=== PATIENT | male | born 1940 | race Caucasian/White ===

== ENCOUNTER 2016-08-01 15:29 | Emergency (ER) | payer MEDICARE, OTHER ==
[~2016-08-01] VITALS: Ht 167.6 cm; Wt 90.0 kg
[2016-08-01] MEDS ORDERED: METO25 PO (15:53)
[2016-08-01] MEDS ORDERED: ATOR10TA84 PO (15:53)
[2016-08-01] MEDS ORDERED: FAMO20 PO (15:53)
[2016-08-01 16:29] LABS: APPEARANCE,URINE CLOUDY (CLEAR); GLUCOSE, URINE (UA) NEGATIVE (NEGATIVE); KETONES,URINE TRACE mg/dL (NEGATIVE); LEUKOCYTE ESTERASE ,URINE NEGATIVE (NEGATIVE); OCCULT BLOOD,URINE LARGE (NEGATIVE); PH,URINE 5.5 (5.0-8.0); PROTEIN,URINE SEE CONFIRM (NEGATIVE)
[2016-08-01 16:30] LABS: ADD UA MICROSCOPIC YES
[2016-08-01 16:38] LABS: BASOPHILS % (AUTO) 0.4 % (0.0-2.0); EOSINOPHILS % (AUTO) 0.3 % (1.0-6.0); HEMATOCRIT 32.8 % (41-53); HEMOGLOBIN 10.1 g/dL (13.5-17.5); LYMPHOCYTES # (AUTO) 0.7 K/uL (1.0-4.8); LYMPHOCYTES % (AUTO) 10.8 % (22.0-44.0); MEAN CORPUSCULAR HEMOGLOBIN 24.8 pg (26.0-34.0); MEAN CORPUSCULAR HGB CONC 30.7 G/dL (31.0-37.0); MEAN CORPUSCULAR VOLUME 81 fL (80-100); MONOCYTES # (AUTO) 1.1 K/uL (0.1-1.0); MONOCYTES % (AUTO) 16.1 % (2.0-9.0); NEUTROPHILS # (AUTO) 4.8 K/uL (1.8-7.7); NEUTROPHILS % (AUTO) 72.4 % (40.0-70.0); PLATELET COUNT (AUTO) 251 K/uL (150-450); RED BLOOD CELL COUNT(AUTO) 4.06 MIL/uL (4.50-5.90); RED CELL DISTRIBUTION WIDTH 16.9 % (11.5-14.5); WHITE BLOOD COUNT (AUTO) 6.6 K/uL (4.5-11.0)
[2016-08-01 16:48] LABS: CALCIUM, TOTAL 8.2 mg/dL (8.8-10.5); CREATININE 1.55 mg/dL (0.60-1.30); POTASSIUM 3.8 mmol/L (3.5-5.1)
[2016-08-01 16:55] LABS: ALBUMIN 2.8 g/dL (3.4-5.0); BILIRUBIN,TOTAL 0.5 mg/dL (0.1-1.0); TOTAL PROTEIN, SERUM 6.3 g/dL (6.4-8.2)
[2016-08-01 17:02] LABS: RBC,URINE >100 /HPF (0-2); SULFOSALICYLIC ACID,URINE 1+ (Negative); WBC,URINE 0-2 /HPF (0-5)
[2016-08-01] MEDS ORDERED: KETOROLAC TROMETHAMINE 60 MG/2 ML VIAL IM ONE (17:15)
[2016-08-01] MEDS ORDERED: TAMSULOSIN HCL 0.4 MG CAPSULE PO ONE (20:30)
[2016-08-01 21:44] VITALS: BP 123/71
[2016-11-04] MEDS ORDERED: DSS100 PO (13:41)
[2016-11-04] MEDS ORDERED: CALC1TAB84 PO (13:41)
[2016-11-04] MEDS ORDERED: COENZQ100 PO (13:41)
[2016-11-04] MEDS ORDERED: AMIO200T44 PO (13:41)
[2016-11-04] MEDS ORDERED: OXYC500S2 PO (13:41)
[2016-11-04] MEDS ORDERED: KDUR20 PO (13:41)
[2016-11-04] MEDS ORDERED: ACET325T47 PO (13:41)
[2016-11-04] MEDS ORDERED: MOM30 PO (13:41)
[2016-11-04] MEDS ORDERED: MIRT15 PO (13:41)
[2016-11-04] MEDS ORDERED: IPRA3AMP4 NEB (13:41)
[2016-11-04] MEDS ORDERED: BUDE0.5A5 NEB (13:41)
[2016-11-04] MEDS ORDERED: ONDA4 PO (13:41)
[2016-11-04] MEDS ORDERED: FURO20 PO (13:41)
[2016-11-04] MEDS ORDERED: SENN-30 PO (13:41)
[2016-12-05] MEDS ORDERED: DSS100 PO (11:20)
[2016-12-05] MEDS ORDERED: FLEET GLYCERIN RC (11:20)
[2016-12-05] MEDS ORDERED: ROBITUSSIN PO (11:20)
[2016-12-05] MEDS ORDERED: ALBUTEROL (11:20)
[2016-12-05] MEDS ORDERED: ZOLP5 PO (11:20)
[2016-12-05] MEDS ORDERED: TRAM50TA4 PO (11:20)
== END 2016-08-01 22:23 | disposition home or self-care (01) ==
LOC: EMS 15:35
DX: N20.9 Urinary calculus, unspecified (principal); N13.30 Unspecified hydronephrosis; N13.4 Hydroureter; D64.9 Anemia, unspecified; Z86.73 Personal history of transient ischemic attack (TIA), and cerebral infarction without residual deficits; K21.9 Gastro-esophageal reflux disease without esophagitis; E78.00 Pure hypercholesterolemia, unspecified; I10 Essential (primary) hypertension
CPT/HCPCS: 36415; 74176; 80053; 81001; 81002; 85025; 96372; 99285; J1885

== ENCOUNTER 2016-08-05 16:21 | Emergency (ER) | payer MEDICARE, OTHER ==
[~2016-08-05] VITALS: Ht 167.6 cm; Wt 77.0 kg
[~2016-08-05 16:21] MED LIST: ATOR10TA84 PO; FAMO20 PO; METO25 PO
[2016-08-06 00:24] VITALS: BP 157/89
[2016-08-06] MEDS ORDERED: TRAM50TA4 PO (12:31)
[2016-08-06] MEDS ORDERED: TAMS0.4C32 PO (12:31)
[2016-08-06] MEDS ORDERED: ATOR40TA28 PO (12:31)
[2016-08-06] MEDS ORDERED: IBUP-2070 PO (12:31)
[2016-08-06] MEDS ORDERED: LEVE500T53 PO (12:31)
[2016-08-06] MEDS ORDERED: METO50 PO (12:31)
[2016-11-04] MEDS ORDERED: IPRA3AMP4 NEB (13:41)
[2016-11-04] MEDS ORDERED: AMIO200T44 PO (13:41)
[2016-11-04] MEDS ORDERED: SENN-30 PO (13:41)
[2016-11-04] MEDS ORDERED: ACET325T47 PO (13:41)
[2016-11-04] MEDS ORDERED: DSS100 PO (13:41)
[2016-11-04] MEDS ORDERED: BUDE0.5A5 NEB (13:41)
[2016-11-04] MEDS ORDERED: MIRT15 PO (13:41)
[2016-11-04] MEDS ORDERED: OXYC500S2 PO (13:41)
[2016-11-04] MEDS ORDERED: ONDA4 PO (13:41)
[2016-11-04] MEDS ORDERED: MOM30 PO (13:41)
[2016-11-04] MEDS ORDERED: FURO20 PO (13:41)
[2016-11-04] MEDS ORDERED: KDUR20 PO (13:41)
[2016-11-04] MEDS ORDERED: CALC1TAB84 PO (13:41)
[2016-11-04] MEDS ORDERED: COENZQ100 PO (13:41)
[2016-12-05] MEDS ORDERED: FLEET GLYCERIN RC (11:20)
[2016-12-05] MEDS ORDERED: ZOLP5 PO (11:20)
[2016-12-05] MEDS ORDERED: TRAM50TA4 PO (11:20)
[2016-12-05] MEDS ORDERED: ALBUTEROL (11:20)
[2016-12-05] MEDS ORDERED: ROBITUSSIN PO (11:20)
[2016-12-05] MEDS ORDERED: DSS100 PO (11:20)
== END 2016-08-06 00:26 | disposition home or self-care (01) ==
LOC: EMS 16:23
DX: M79.605 Pain in left leg (principal); M79.604 Pain in right leg; I10 Essential (primary) hypertension; K21.9 Gastro-esophageal reflux disease without esophagitis; E78.00 Pure hypercholesterolemia, unspecified; Z86.73 Personal history of transient ischemic attack (TIA), and cerebral infarction without residual deficits; Z85.841 Personal history of malignant neoplasm of brain
CPT/HCPCS: 99283

== ENCOUNTER 2016-08-12 14:10 | Inpatient (IN) | payer MEDICARE, OTHER ==
[~2016-08-12 14:10] MED LIST changes: -ATOR10TA84 PO; +ATOR40TA28 PO; +IBUP-2070 PO; +LEVE500T53 PO; -METO25 PO; +METO50 PO; +TAMS0.4C32 PO; +TRAM50TA4 PO
[2016-08-12 15:35] VITALS: BP 131/80
[2016-08-12] MEDS ORDERED: AMIODARONE HCL 150 MG in DEXTROSE 5%-WATER 97 ML IV ONE (16:00)
[2016-08-12] MEDS ORDERED: AMIODARONE HCL 360 MG in DEXTROSE 5%-WATER 242.8 ML IV ONE (16:00)
[2016-08-12] MEDS ORDERED: 0.9% SODIUM CHLORIDE 10 ML SYRINGE IVP PRN ×2 (16:30→17:45)
[2016-08-12] MEDS: ACETYLCYSTEINE 10% 100 MG/ML 4 ML NEB SOLUTION NEB SCH ×2 (16:53→23:11)
[2016-08-12] MEDS: DIGOXIN 250 MCG/ML 2 ML AMP IVP SCH ×2 (16:55→23:53)
[2016-08-12] MEDS ORDERED: TraMADol HCL 50 MG TABLET PO PRN (17:45)
[2016-08-12] MEDS ORDERED: ACETAMINOPHEN 325 MG TABLET PO PRN (17:45)
[2016-08-12] MEDS ORDERED: DOCUSATE SODIUM 283 MG/5 ML MINI-ENEMA PR PRN (17:45)
[2016-08-12] MEDS ORDERED: HYDROCODONE/ACETAMINOPHEN 5-325 MG TABLET PO PRN (17:45)
[2016-08-12] MEDS: GuaiFENesin [SUGAR-FREE] 200 MG/10 ML SOLUTION UDCUP PO SCH ×2 (18:20→23:53)
[2016-08-12] MEDS ORDERED: PNEUMOCOCCAL VACCINE POLYVALENT 0.5 ML VIAL [PPSV23] IM ONE (18:30)
[2016-08-12] MEDS ORDERED: INFLUENZA VIRUS VACCINE QVS 2016-17 (3YR+)/PF 60 MCG/0.5 ML SYRINGE IM ONE (18:30)
[2016-08-12] MEDS: ALBUTEROL SULFATE 2.5 MG/0.5 ML NEB SOLUTION NEB SCH ×2 (19:30→23:00)
[2016-08-12] MEDS: IPRATROPIUM BROMIDE 0.5 MG/2.5 ML NEB SOLUTION NEB SCH ×2 (19:30→23:00)
[2016-08-12 20:11] VITALS: BP 119/65
[2016-08-12] MEDS: LevETIRAcetam 500 MG TABLET PO SCH (20:44)
[2016-08-12] MEDS: ATORVASTATIN CALCIUM 40 MG TABLET PO SCH (20:44)
[2016-08-12] MEDS: OXYGEN THERAPY IH SCH (20:45)
[2016-08-12] MEDS: TAMSULOSIN HCL 0.4 MG CAPSULE PO SCH (20:45)
[2016-08-12] MEDS: DOCUSATE SODIUM 250 MG CAPSULE PO SCH (20:45)
[2016-08-12] MEDS: MIRTAZAPINE 15 MG TABLET PO SCH (20:45)
[2016-08-12] MEDS: SENNA 187 MG TABLET PO SCH (20:45)
[2016-08-12] MEDS: METOPROLOL TARTRATE 50 MG TABLET PO SCH (20:45)
[2016-08-12] MEDS ORDERED: AMIODARONE HCL 540 MG in DEXTROSE 5%-WATER 239.2 ML IV ONE (22:00)
[2016-08-12] MEDS ORDERED: ALBUTEROL SULFATE 2.5 MG/0.5 ML NEB SOLUTION NEB PRN (23:00)
[2016-08-12] MEDS ORDERED: ZOLPIDEM TARTRATE 5 MG TABLET PO PRN (23:00)
[2016-08-12] MEDS ORDERED: IPRATROPIUM BROMIDE 0.5 MG/2.5 ML NEB SOLUTION NEB PRN (23:00)
[2016-08-12] MEDS ORDERED: ONDANSETRON HCL 4 MG/2 ML VIAL IVP PRN (23:00)
[2016-08-12] MEDS ORDERED: BISACODYL 10 MG RECTAL RECTAL SUPPOSITORY PR PRN (23:00)
[2016-08-12] MEDS ORDERED: MAGNESIUM HYDROXIDE SUSPENSION 30 ML UDCUP PO PRN (23:00)
[2016-08-12 23:39] VITALS: BP 150/73
[2016-08-13] MEDS: IPRATROPIUM BROMIDE 0.5 MG/2.5 ML NEB SOLUTION NEB SCH ×6 (02:56→23:14)
[2016-08-13] MEDS: ALBUTEROL SULFATE 2.5 MG/0.5 ML NEB SOLUTION NEB SCH ×6 (02:56→23:14)
[2016-08-13 05:09] VITALS: BP 148/82
[2016-08-13 06:14] LABS: EOSINOPHILS % (AUTO) 0 % (1.0-6.0); HEMOGLOBIN 8.8 g/dL (13.5-17.5); LYMPHOCYTES # (AUTO) 0.8 K/uL (1.0-4.8); LYMPHOCYTES % (AUTO) 5.2 % (22.0-44.0); MEAN CORPUSCULAR HEMOGLOBIN 24.6 pg (26.0-34.0); MEAN CORPUSCULAR HGB CONC 30.3 G/dL (31.0-37.0); MEAN CORPUSCULAR VOLUME 81 fL (80-100); MONOCYTES # (AUTO) 1.9 K/uL (0.1-1.0); MONOCYTES % (AUTO) 12.8 % (2.0-9.0); NEUTROPHILS # (AUTO) 12.2 K/uL (1.8-7.7); PLATELET COUNT (AUTO) 384 K/uL (150-450); RED BLOOD CELL COUNT(AUTO) 3.58 MIL/uL (4.50-5.90); RED CELL DISTRIBUTION WIDTH 16.8 % (11.5-14.5); WHITE BLOOD COUNT (AUTO) 14.8 K/uL (4.5-11.0)
[2016-08-13] MEDS: GuaiFENesin [SUGAR-FREE] 200 MG/10 ML SOLUTION UDCUP PO SCH ×3 (06:40→18:00)
[2016-08-13] MEDS: DIGOXIN 250 MCG/ML 2 ML AMP IVP SCH ×2 (06:42→13:46)
[2016-08-13 07:14] VITALS: BP 178/88
[2016-08-13 07:24] LABS: ANION GAP 6 mmol/L (8-16); CALCIUM, TOTAL 8.4 mg/dL (8.8-10.5); CARBON DIOXIDE 34 mmol/L (22-29); CHLORIDE 102 mmol/L (98-107); CREATINE KINASE, TOTAL 24 U/L (39-308); CREATININE 1.04 mg/dL (0.60-1.30); GLOMERULAR FILTR. RATE CALC > 60 mL/min (>60); POTASSIUM 3.6 mmol/L (3.5-5.1); SODIUM SERUM 142 mmol/L (136-145); THYROID STIMULATING HORMONE 0.42 uIU/mL (0.36-3.74); UREA NITROGEN, BLOOD 18 mg/dL (7-18)
[2016-08-13] MEDS: ACETYLCYSTEINE 10% 100 MG/ML 4 ML NEB SOLUTION NEB SCH ×3 (07:25→23:16)
[2016-08-13] MEDS: BUDESONIDE 0.5 MG/2 ML NEB SOLUTION NEB SCH ×2 (07:25→19:21)
[2016-08-13 08:35] LABS: B-TYPE NATRIURETIC PEPTIDE 626 pg/mL (0-100)
[2016-08-13] MEDS: ENOXAPARIN SODIUM 40 MG/0.4 ML PF SYRINGE SQ SCH (09:00)
[2016-08-13] MEDS: OXYGEN THERAPY IH SCH ×2 (10:11→21:32)
[2016-08-13] MEDS: TAMSULOSIN HCL 0.4 MG CAPSULE PO SCH ×2 (10:12→21:33)
[2016-08-13] MEDS: LevETIRAcetam 500 MG TABLET PO SCH ×2 (10:12→21:33)
[2016-08-13] MEDS: DOCUSATE SODIUM 250 MG CAPSULE PO SCH ×2 (10:12→21:33)
[2016-08-13] MEDS: PANTOPRAZOLE SODIUM 40 MG DR TABLET PO SCH (10:12)
[2016-08-13] MEDS: METOPROLOL TARTRATE 50 MG TABLET PO SCH ×2 (10:12→21:34)
[2016-08-13] MEDS: UBIDECARENONE 100 MG CAPSULE PO SCH (10:14)
[2016-08-13] MEDS ORDERED: MAGNESIUM SULFATE 4 GM/WATER 100 ML IV PRN (10:15)
[2016-08-13] MEDS ORDERED: MAGNESIUM SULFATE 2 GM in DEXTROSE 5%-WATER 50 ML IV PRN (10:15)
[2016-08-13] MEDS: FUROSEMIDE 20 MG/2 ML VIAL IVP SCH ×2 (10:30→21:33)
[2016-08-13 11:00] LABS: RBC MORPHOLOGY COMMENT NORMAL RBC MORPH
[2016-08-13 11:15] VITALS: BP 166/71
[2016-08-13 11:54] LABS: ALBUMIN 2.3 g/dL (3.4-5.0)
[2016-08-13] MEDS: EPOETIN ALFA 10,000 UNITS/ML VIAL SQ SCH (13:44)
[2016-08-13 15:16] VITALS: BP 133/91
[2016-08-13] MEDS ORDERED: AMIODARONE HCL 750 MG in DEXTROSE 5%-WATER 485 ML IV SCH (16:00)
[2016-08-13] MEDS: MAGNESIUM OXIDE 400 MG TABLET PO PRN (16:43)
[2016-08-13] MEDS ORDERED: SODIUM CHLORIDE 0.9% 100 ML ONE (17:39)
[2016-08-13] MEDS: CefTRIAXone 1 GM/DEXTROSE 50 ML IV SCH (17:46)
[2016-08-13] MEDS: AZITHROMYCIN 500 MG/NS 250 ML IV SCH (19:04)
[2016-08-13] MEDS ORDERED: MIDAZOLAM HCL 2 MG/2 ML VIAL IVP ONE (20:00)
[2016-08-13 20:30] VITALS: BP 137/66
[2016-08-13 20:38] LABS: BASOPHILS # (AUTO) 0.01 K/uL (0.00-0.20); EOSINOPHILS # (AUTO) 0.01 K/uL (0.00-0.70); EOSINOPHILS % (AUTO) 0.04 % (1.0-6.0); HEMATOCRIT 30.9 % (41-53); HEMOGLOBIN 9.5 g/dL (13.5-17.5); LYMPHOCYTES % (AUTO) 5.9 % (22.0-44.0); MEAN CORPUSCULAR HEMOGLOBIN 24.8 pg (26.0-34.0); MEAN CORPUSCULAR HGB CONC 30.8 G/dL (31.0-37.0); MEAN CORPUSCULAR VOLUME 81 fL (80-100); MONOCYTES # (AUTO) 0.3 K/uL (0.1-1.0); MONOCYTES % (AUTO) 1.9 % (2.0-9.0); NEUTROPHILS # (AUTO) 15.2 K/uL (1.8-7.7); PLATELET COUNT (AUTO) 450 K/uL (150-450); RED BLOOD CELL COUNT(AUTO) 3.83 MIL/uL (4.50-5.90); RED CELL DISTRIBUTION WIDTH 17.2 % (11.5-14.5); WHITE BLOOD COUNT (AUTO) 16.5 K/uL (4.5-11.0)
[2016-08-13 20:42] LABS: CALCIUM, TOTAL 8.8 mg/dL (8.8-10.5); CREATININE 1.28 mg/dL (0.60-1.30); POTASSIUM 3.7 mmol/L (3.5-5.1)
[2016-08-13 20:48] LABS: ALBUMIN 2.2 g/dL (3.4-5.0); BILIRUBIN,TOTAL 0.7 mg/dL (0.1-1.0); TOTAL PROTEIN, SERUM 6.9 g/dL (6.4-8.2)
[2016-08-13] MEDS ORDERED: METOPROLOL TARTRATE 50 MG TABLET PO SCH (21:00)
[2016-08-13] MEDS ORDERED: LevETIRAcetam 500 MG TABLET PO SCH (21:00)
[2016-08-13] MEDS ORDERED: ATORVASTATIN CALCIUM 40 MG TABLET PO SCH (21:00)
[2016-08-13 21:02] LABS: NEUTROPHILS % (AUTO) 92.2 % (40.0-70.0); RBC MORPHOLOGY COMMENT ABNORMAL RBC MORPH
[2016-08-13] MEDS: SENNA 187 MG TABLET PO SCH (21:33)
[2016-08-13] MEDS: MIRTAZAPINE 15 MG TABLET PO SCH (21:35)
[2016-08-13] MEDS: ATORVASTATIN CALCIUM 40 MG TABLET PO SCH (23:17)
[2016-08-13 23:42] LABS: GLUCOSE COMMENT 1 Doctor Notified; GLUCOSE,POINT OF CARE 224 MG/DL (70-110)
[2016-08-14] VITALS: BP 129/51
[2016-08-14] MEDS: IPRATROPIUM BROMIDE 0.5 MG/2.5 ML NEB SOLUTION NEB SCH ×7 (02:52→23:00)
[2016-08-14] MEDS: ALBUTEROL SULFATE 2.5 MG/0.5 ML NEB SOLUTION NEB SCH ×7 (02:53→23:00)
[2016-08-14 04:00] VITALS: BP 94/47
[2016-08-14 05:58] LABS: EOSINOPHILS % (AUTO) 0 % (1.0-6.0); HEMATOCRIT 29.5 % (41-53); LYMPHOCYTES # (AUTO) 0.6 K/uL (1.0-4.8); LYMPHOCYTES % (AUTO) 3.2 % (22.0-44.0); MEAN CORPUSCULAR HEMOGLOBIN 25.8 pg (26.0-34.0); MEAN CORPUSCULAR HGB CONC 30.4 G/dL (31.0-37.0); MEAN CORPUSCULAR VOLUME 85 fL (80-100); MONOCYTES # (AUTO) 1.3 K/uL (0.1-1.0); MONOCYTES % (AUTO) 7.7 % (2.0-9.0); NEUTROPHILS # (AUTO) 15.7 K/uL (1.8-7.7); PLATELET COUNT (AUTO) 401 K/uL (150-450); RED BLOOD CELL COUNT(AUTO) 3.47 MIL/uL (4.50-5.90); RED CELL DISTRIBUTION WIDTH 17.2 % (11.5-14.5); WHITE BLOOD COUNT (AUTO) 17.6 K/uL (4.5-11.0)
[2016-08-14] MEDS: GuaiFENesin [SUGAR-FREE] 200 MG/10 ML SOLUTION UDCUP PO SCH ×5 (06:00→18:00)
[2016-08-14 06:10] LABS: CALCIUM, TOTAL 8.5 mg/dL (8.8-10.5); CREATININE 1.25 mg/dL (0.60-1.30); MAGNESIUM 1.6 mg/dL (1.80-2.40); POTASSIUM 3.9 mmol/L (3.5-5.1)
[2016-08-14 06:42] LABS: NEUTROPHILS % (AUTO) 89.1 % (40.0-70.0); RBC MORPHOLOGY COMMENT ABNORMAL RBC MORPH
[2016-08-14] MEDS: OXYGEN THERAPY IH SCH ×2 (07:09→20:12)
[2016-08-14] MEDS: ACETYLCYSTEINE 10% 100 MG/ML 4 ML NEB SOLUTION NEB SCH ×2 (07:09→15:28)
[2016-08-14] MEDS: BUDESONIDE 0.5 MG/2 ML NEB SOLUTION NEB SCH ×3 (07:11→20:11)
[2016-08-14 08:00] VITALS: BP 126/57
[2016-08-14] MEDS ORDERED: TAMSULOSIN HCL 0.4 MG CAPSULE PO SCH (09:00)
[2016-08-14] MEDS ORDERED: FAMOTIDINE 20 MG TABLET PO SCH (09:00)
[2016-08-14] MEDS: FUROSEMIDE 20 MG/2 ML VIAL IVP SCH ×2 (09:50→21:00)
[2016-08-14] MEDS: TAMSULOSIN HCL 0.4 MG CAPSULE PO SCH ×2 (09:51→20:44)
[2016-08-14] MEDS: UBIDECARENONE 100 MG CAPSULE PO SCH (09:51)
[2016-08-14] MEDS: DOCUSATE SODIUM 250 MG CAPSULE PO SCH ×2 (09:51→21:00)
[2016-08-14] MEDS: METOPROLOL TARTRATE 50 MG TABLET PO SCH ×2 (09:52→21:00)
[2016-08-14] MEDS: LevETIRAcetam 500 MG TABLET PO SCH ×2 (09:52→20:44)
[2016-08-14] MEDS: PANTOPRAZOLE SODIUM 40 MG DR TABLET PO SCH (09:52)
[2016-08-14] MEDS: ENOXAPARIN SODIUM 40 MG/0.4 ML PF SYRINGE SQ SCH (09:53)
[2016-08-14] MEDS: CefTRIAXone 1 GM/DEXTROSE 50 ML IV SCH (10:44)
[2016-08-14] MEDS: MAGNESIUM OXIDE 400 MG TABLET PO PRN ×2 (10:44→15:14)
[2016-08-14] MEDS ORDERED: SODIUM CHLORIDE 0.9% 250 ML IV ONE (11:10)
[2016-08-14 12:00] VITALS: BP 105/54
[2016-08-14] MEDS: AZITHROMYCIN 500 MG/NS 250 ML IV SCH (12:06)
[2016-08-14 13:24] LABS: CARCINOEMBRYONIC AG 2.2 ng/mL (0.0-4.7)
[2016-08-14] MEDS: AMIODARONE HCL 200 MG TABLET PO SCH ×2 (15:14→20:44)
[2016-08-14 16:40] VITALS: BP 114/58
[2016-08-14 19:58] VITALS: BP 101/42
[2016-08-14] MEDS: MIRTAZAPINE 15 MG TABLET PO SCH (21:00)
[2016-08-14] MEDS: ATORVASTATIN CALCIUM 40 MG TABLET PO SCH (21:00)
[2016-08-14] MEDS: SENNA 187 MG TABLET PO SCH (21:00)
[2016-08-15 00:05] VITALS: BP 103/53
[2016-08-15] MEDS: IPRATROPIUM BROMIDE 0.5 MG/2.5 ML NEB SOLUTION NEB SCH ×4 (03:00→15:00)
[2016-08-15] MEDS: ALBUTEROL SULFATE 2.5 MG/0.5 ML NEB SOLUTION NEB SCH ×4 (03:00→15:00)
[2016-08-15 05:14] VITALS: BP 108/52
[2016-08-15] MEDS: GuaiFENesin [SUGAR-FREE] 200 MG/10 ML SOLUTION UDCUP PO SCH ×3 (06:00→11:41)
[2016-08-15] MEDS: BUDESONIDE 0.5 MG/2 ML NEB SOLUTION NEB SCH (07:20)
[2016-08-15] MEDS: ACETYLCYSTEINE 10% 100 MG/ML 4 ML NEB SOLUTION NEB SCH ×3 (07:20→16:00)
[2016-08-15] MEDS: EPOETIN ALFA 10,000 UNITS/ML VIAL SQ SCH (09:00)
[2016-08-15] MEDS: UBIDECARENONE 100 MG CAPSULE PO SCH (09:00)
[2016-08-15] MEDS: FUROSEMIDE 20 MG/2 ML VIAL IVP SCH (09:00)
[2016-08-15] MEDS: DOCUSATE SODIUM 250 MG CAPSULE PO SCH (09:00)
[2016-08-15] MEDS: LevETIRAcetam 500 MG TABLET PO SCH (09:00)
[2016-08-15] MEDS: TAMSULOSIN HCL 0.4 MG CAPSULE PO SCH (09:00)
[2016-08-15] MEDS: ENOXAPARIN SODIUM 40 MG/0.4 ML PF SYRINGE SQ SCH (09:00)
[2016-08-15] MEDS ORDERED: INFLUENZA VIRUS VACCINE QVS 2016-17 (3YR+)/PF 60 MCG/0.5 ML SYRINGE IM ONE (11:30)
[2016-08-15] MEDS: PANTOPRAZOLE SODIUM 40 MG DR TABLET PO SCH (11:39)
[2016-08-15] MEDS: AMIODARONE HCL 200 MG TABLET PO SCH (11:40)
[2016-08-15] MEDS: METOPROLOL TARTRATE 50 MG TABLET PO SCH (11:40)
[2016-08-15] MEDS: CefTRIAXone 1 GM/DEXTROSE 50 ML IV SCH (11:47)
[2016-08-15] MEDS ORDERED: SODIUM CHLORIDE 0.9% 250 ML IV ONE (11:49)
[2016-08-15 12:00] VITALS: BP 122/58
[2016-08-15] MEDS: AZITHROMYCIN 500 MG/NS 250 ML IV SCH (13:00)
[2016-08-15 15:35] VITALS: BP 116/52
[2016-08-15] MEDS ORDERED: [UNRECOGNIZED DRUG - CODE] NEB (16:12)
[2016-08-15] MEDS ORDERED: AUD NEB (16:13)
[2016-11-04] MEDS ORDERED: CALC1TAB84 PO (13:41)
[2016-11-04] MEDS ORDERED: OXYC500S2 PO (13:41)
[2016-11-04] MEDS ORDERED: AMIO200T44 PO (13:41)
[2016-11-04] MEDS ORDERED: FURO20 PO (13:41)
[2016-11-04] MEDS ORDERED: IPRA3AMP4 NEB (13:41)
[2016-11-04] MEDS ORDERED: ONDA4 PO (13:41)
[2016-11-04] MEDS ORDERED: MIRT15 PO (13:41)
[2016-11-04] MEDS ORDERED: MOM30 PO (13:41)
[2016-11-04] MEDS ORDERED: BUDE0.5A5 NEB (13:41)
[2016-11-04] MEDS ORDERED: KDUR20 PO (13:41)
[2016-11-04] MEDS ORDERED: SENN-30 PO (13:41)
[2016-11-04] MEDS ORDERED: DSS100 PO (13:41)
[2016-11-04] MEDS ORDERED: ACET325T47 PO (13:41)
[2016-11-04] MEDS ORDERED: COENZQ100 PO (13:41)
[2016-12-05] MEDS ORDERED: ROBITUSSIN PO (11:20)
[2016-12-05] MEDS ORDERED: ZOLP5 PO (11:20)
[2016-12-05] MEDS ORDERED: FLEET GLYCERIN RC (11:20)
[2016-12-05] MEDS ORDERED: DSS100 PO (11:20)
[2016-12-05] MEDS ORDERED: ALBUTEROL (11:20)
[2016-12-05] MEDS ORDERED: TRAM50TA4 PO (11:20)
== END 2016-08-15 17:30 | DRG 871 ==
LOC: 5S 14:10 → ICU 08-13 20:00 → 5S 08-14 16:03
PROVIDERS: ADMIT Internal Medicine Geriatric Medicine; ATTEND Internal Medicine Geriatric Medicine
DX: A41.9 Sepsis, unspecified organism (principal); J18.9 Pneumonia, unspecified organism; G93.40 Encephalopathy, unspecified; J96.90 Respiratory failure, unspecified, unspecified whether with hypoxia or hypercapnia; I46.9 Cardiac arrest, cause unspecified; N13.30 Unspecified hydronephrosis; I69.351 Hemiplegia and hemiparesis following cerebral infarction affecting right dominant side; J44.0 Chronic obstructive pulmonary disease with (acute) lower respiratory infection; I48.91 Unspecified atrial fibrillation; Z51.5 Encounter for palliative care; Z66 Do not resuscitate; J44.9 Chronic obstructive pulmonary disease, unspecified; N40.0 Benign prostatic hyperplasia without lower urinary tract symptoms; E87.6 Hypokalemia; R53.81 Other malaise; R62.7 Adult failure to thrive; R91.1 Solitary pulmonary nodule; I69.320 Aphasia following cerebral infarction; I73.9 Peripheral vascular disease, unspecified; M48.06 Spinal stenosis, lumbar region; N40.1 Benign prostatic hyperplasia with lower urinary tract symptoms; D64.9 Anemia, unspecified; E78.5 Hyperlipidemia, unspecified; I10 Essential (primary) hypertension; E83.42 Hypomagnesemia; F17.210 Nicotine dependence, cigarettes, uncomplicated; Z91.19 Patient's noncompliance with other medical treatment and regimen; Z28.21 Immunization not carried out because of patient refusal; Z98.890 Other specified postprocedural states; Z53.29 Procedure and treatment not carried out because of patient's decision for other reasons; Z86.011 Personal history of benign neoplasm of the brain
CPT/HCPCS: 82105; 82306; 82378; 82607; 82746; 82962; 83036; 83735; 84439; 84443; 86301; 87081; 92950; 93306; 94640; 94660; 94799; J0282; J0456; J0696; J0885; J1160; J1650; J1940; J2250; J7050; J7060

== ENCOUNTER → 2016-11-04 | Outpatient (CLI) | payer MEDICARE, OTHER ==
[~2016-11-04] MED LIST changes: +ACET325T47 PO; +AMIO200T44 PO; +AUD NEB; +BUDE0.5A5 NEB; +CALC1TAB84 PO; +COENZQ100 PO; +DSS100 PO; +FURO20 PO; +IPRA3AMP4 NEB; +KDUR20 PO; +MIRT15 PO; +MOM30 PO; +ONDA4 PO; +OXYC500S2 PO; +SENN-30 PO; +[UNRECOGNIZED DRUG - CODE] NEB
[2016-11-04 13:29] VITALS: BP 104/48
== END | disposition home or self-care (01) ==
LOC: SRCNTR 13:27
PROVIDERS: ATTEND Internal Medicine Critical Care Medicine
DX: I10 Essential (primary) hypertension (principal); F17.210 Nicotine dependence, cigarettes, uncomplicated; R91.1 Solitary pulmonary nodule; I63.8 Other cerebral infarction; G81.93 Hemiplegia, unspecified affecting right nondominant side; Z98.890 Other specified postprocedural states
CPT/HCPCS: G0463

== ENCOUNTER → 2016-11-13 | Outpatient (CLI) | payer MEDICARE, OTHER ==
[~2016-11-13] MED LIST changes: -AUD NEB; -TRAM50TA4 PO; -[UNRECOGNIZED DRUG - CODE] NEB
== END | disposition home or self-care (01) ==
LOC: RADMN 13:00
PROVIDERS: ATTEND Internal Medicine Critical Care Medicine
DX: J43.8 Other emphysema (principal); J90 Pleural effusion, not elsewhere classified; I25.10 Atherosclerotic heart disease of native coronary artery without angina pectoris; I70.0 Atherosclerosis of aorta; K80.20 Calculus of gallbladder without cholecystitis without obstruction; J98.11 Atelectasis; J98.09 Other diseases of bronchus, not elsewhere classified
CPT/HCPCS: 71250

== ENCOUNTER → 2016-12-05 | Outpatient (CLI) | payer MEDICARE, OTHER ==
[~2016-12-05] MED LIST changes: +ALBUTEROL; +FLEET GLYCERIN RC; +ROBITUSSIN PO; +TRAM50TA4 PO; +ZOLP5 PO
[2016-12-05 11:03] VITALS: BP 131/61
== END | disposition home or self-care (01) ==
LOC: SRCNTR 10:51
PROVIDERS: ATTEND Internal Medicine Critical Care Medicine
DX: R91.8 Other nonspecific abnormal finding of lung field (principal); J90 Pleural effusion, not elsewhere classified; J43.9 Emphysema, unspecified; I25.10 Atherosclerotic heart disease of native coronary artery without angina pectoris; I70.0 Atherosclerosis of aorta; K80.20 Calculus of gallbladder without cholecystitis without obstruction; I63.9 Cerebral infarction, unspecified; G81.91 Hemiplegia, unspecified affecting right dominant side; I10 Essential (primary) hypertension; F17.200 Nicotine dependence, unspecified, uncomplicated; Z98.890 Other specified postprocedural states
CPT/HCPCS: G0463

== ENCOUNTER 2017-01-17 19:47 | Inpatient (IN) | payer MEDICARE, OTHER ==
[~2017-01-17] VITALS: Ht 177.8 cm; Wt 75.8 kg
[2017-01-17 20:35] LABS: BASOPHILS % (AUTO) 0.5 % (0.0-2.0); EOSINOPHILS % (AUTO) 2.3 % (1.0-6.0); HEMATOCRIT 31.3 % (41-53); LYMPHOCYTES # (AUTO) 2.5 K/uL (1.0-4.8); LYMPHOCYTES % (AUTO) 36.4 % (22.0-44.0); MEAN CORPUSCULAR HEMOGLOBIN 26.5 pg (26.0-34.0); MEAN CORPUSCULAR HGB CONC 32.1 G/dL (31.0-37.0); MEAN CORPUSCULAR VOLUME 82 fL (80-100); MONOCYTES # (AUTO) 0.9 K/uL (0.1-1.0); MONOCYTES % (AUTO) 12.9 % (2.0-9.0); NEUTROPHILS # (AUTO) 3.3 K/uL (1.8-7.7); NEUTROPHILS % (AUTO) 47.9 % (40.0-70.0); PLATELET COUNT (AUTO) 250 K/uL (150-450); RED BLOOD CELL COUNT(AUTO) 3.79 MIL/uL (4.50-5.90); RED CELL DISTRIBUTION WIDTH 16.5 % (11.5-14.5); WHITE BLOOD COUNT (AUTO) 6.9 K/uL (4.5-11.0)
[2017-01-17 20:39] LABS: ANION GAP 5 mmol/L (8-16); CALCIUM, TOTAL 8.8 mg/dL (8.8-10.5); CARBON DIOXIDE 33 mmol/L (22-29); CHLORIDE 102 mmol/L (98-107); CREATININE 1.62 mg/dL (0.60-1.30); GLOMERULAR FILTR. RATE CALC 42 mL/min (>60); POTASSIUM 3.9 mmol/L (3.5-5.1); SODIUM SERUM 140 mmol/L (136-145); UREA NITROGEN, BLOOD 14 mg/dL (7-18)
[2017-01-17 20:54] LABS: INR 1.1 (0.9-1.1); PROTHROMBIN TIME 11.2 SEC (9.4-11.6)
[2017-01-17 21:03] LABS: ALANINE AMINOTRANSFERASE 12 U/L (12-78); ALBUMIN 3.3 g/dL (3.4-5.0); ASPARTATE AMINOTRANSFERASE 17 U/L (15-37); BILIRUBIN,TOTAL 0.5 mg/dL (0.1-1.0); CREATINE KINASE, TOTAL 85 U/L (39-308); TOTAL PROTEIN, SERUM 6.9 g/dL (6.4-8.2)
[2017-01-17 21:06] LABS: B-TYPE NATRIURETIC PEPTIDE 115 pg/mL (0-100); CREATINE KINASE MB < 0.5 ng/mL (0-5)
[2017-01-17] MEDS: SODIUM CHLORIDE 0.9% 250 ML IV ONE ×2 (22:22→23:13)
[2017-01-17 22:27] LABS: APPEARANCE,URINE CLEAR (CLEAR); GLUCOSE, URINE (UA) NEGATIVE (NEGATIVE); KETONES,URINE NEGATIVE (NEGATIVE); LEUKOCYTE ESTERASE ,URINE NEGATIVE (NEGATIVE); OCCULT BLOOD,URINE NEGATIVE (NEGATIVE); PROTEIN,URINE NEGATIVE (NEGATIVE)
[2017-01-17 22:29] LABS: ADD UA MICROSCOPIC NO
[2017-01-17] MEDS ORDERED: TraMADol HCL 50 MG TABLET PO PRN (23:30)
[2017-01-17] MEDS: ZOLPIDEM TARTRATE 5 MG TABLET PO SCH (23:30)
[2017-01-17] MEDS ORDERED: GLYCERIN PR PRN (23:30)
[2017-01-17] MEDS ORDERED: DOCUSATE SODIUM 250 MG CAPSULE PO SCH (23:30)
[2017-01-17] MEDS ORDERED: ACETAMINOPHEN 325 MG TABLET PO PRN (23:30)
[2017-01-17] MEDS ORDERED: GuaiFENesin [SUGAR-FREE] 200 MG/10 ML SOLUTION UDCUP PO PRN (23:30)
[2017-01-17] MEDS ORDERED: ONDANSETRON HCL 4 MG/2 ML VIAL IVP PRN (23:30)
[2017-01-17] MEDS ORDERED: HYDROCODONE/ACETAMINOPHEN 5-325 MG TABLET PO PRN ×2 (23:30)
[2017-01-17] MEDS ORDERED: OxyCODONE HCL/ACETAMINOPHEN 5-325 MG TABLET PO SCH (23:30)
[2017-01-17] MEDS ORDERED: ALBUTEROL SULFATE HFA 90 MCG/PUFF 8 GM INHALER IH PRN (23:45)
[2017-01-18] VITALS (7 sets, daily range): BP systolic 123–145; BP diastolic 47–67
[2017-01-18] MEDS ORDERED: ACETAMINOPHEN 325 MG TABLET PO SCH
[2017-01-18] MEDS: FAMOTIDINE 20 MG TABLET PO SCH ×3 (00:28→20:06)
[2017-01-18] MEDS: LevETIRAcetam 500 MG TABLET PO SCH ×3 (00:28→20:06)
[2017-01-18] MEDS: FUROSEMIDE 20 MG TABLET PO SCH ×3 (00:28→20:07)
[2017-01-18] MEDS: ATORVASTATIN CALCIUM 40 MG TABLET PO SCH ×2 (00:28→20:07)
[2017-01-18] MEDS: METOPROLOL TARTRATE 50 MG TABLET PO SCH ×3 (00:28→21:00)
[2017-01-18] MEDS ORDERED: 0.9% SODIUM CHLORIDE 5 ML NEB SOLUTION NEB ONE (08:20)
[2017-01-18] MEDS: BUDESONIDE 0.5 MG/2 ML NEB SOLUTION NEB SCH ×2 (08:22→21:00)
[2017-01-18] MEDS: IPRATROPIUM BROMIDE 0.5 MG/2.5 ML NEB SOLUTION NEB SCH ×4 (08:26→21:00)
[2017-01-18] MEDS: ALBUTEROL SULFATE 2.5 MG/0.5 ML NEB SOLUTION NEB SCH ×4 (08:26→21:00)
[2017-01-18] MEDS: HEPARIN SODIUM,PORCINE 5,000 UNITS/ML VIAL SQ SCH ×3 (08:33→17:01)
[2017-01-18] MEDS: AMIODARONE HCL 200 MG TABLET PO SCH (08:35)
[2017-01-18] MEDS: LANSOPRAZOLE 30 MG SOLUBLE TABLET PO SCH (08:36)
[2017-01-18] MEDS: TAMSULOSIN HCL 0.4 MG CAPSULE PO SCH ×2 (08:41→20:06)
[2017-01-18] MEDS: DOCUSATE SODIUM 100 MG CAPSULE PO SCH (09:00)
[2017-01-18] MEDS ORDERED: DOCUSATE SODIUM 250 MG CAPSULE PO SCH (09:00)
[2017-01-18] MEDS ORDERED: MISC MED-CONVERTED FROM AMBULATORY (Ipratropium/Albuterol Sulfate (Duoneb 2.5-0.5 Mg/3 Ml NEB SCH (09:00)
[2017-01-18] MEDS ORDERED: HALOPERIDOL LACTATE 5 MG/ML VIAL IM PRN (10:00)
[2017-01-18] MEDS ORDERED: [UNRECOGNIZED DRUG - OTHER] PR (10:52)
[2017-01-18] MEDS ORDERED: GUAIF10 PO (10:52)
[2017-01-18] MEDS ORDERED: PERCT PO (10:52)
[2017-01-18] MEDS ORDERED: AUD NEB (10:52)
[2017-01-18] MEDS ORDERED: HALOPERIDOL 2 MG TABLET PO PRN (16:45)
[2017-01-18] MEDS: MIRTAZAPINE 15 MG TABLET PO SCH (20:06)
[2017-01-18] MEDS: OXYGEN THERAPY IH SCH (20:06)
[2017-01-18] MEDS: SENNA 187 MG TABLET PO SCH (20:06)
[2017-01-18] MEDS: ZOLPIDEM TARTRATE 5 MG TABLET PO SCH (21:00)
[2017-01-19] MEDS: HEPARIN SODIUM,PORCINE 5,000 UNITS/ML VIAL SQ SCH ×3 (00:03→17:47)
[2017-01-19 04:52] VITALS: BP 116/57
[2017-01-19 07:41] VITALS: BP 139/69
[2017-01-19] MEDS: TAMSULOSIN HCL 0.4 MG CAPSULE PO SCH ×2 (08:17→20:32)
[2017-01-19] MEDS: DOCUSATE SODIUM 100 MG CAPSULE PO SCH (08:17)
[2017-01-19] MEDS: FUROSEMIDE 20 MG TABLET PO SCH ×2 (08:17→20:32)
[2017-01-19] MEDS: AMIODARONE HCL 200 MG TABLET PO SCH (08:17)
[2017-01-19] MEDS: METOPROLOL TARTRATE 50 MG TABLET PO SCH ×2 (08:18→20:32)
[2017-01-19] MEDS: FAMOTIDINE 20 MG TABLET PO SCH ×2 (08:19→20:32)
[2017-01-19] MEDS: LANSOPRAZOLE 30 MG SOLUBLE TABLET PO SCH (08:19)
[2017-01-19] MEDS: LevETIRAcetam 500 MG TABLET PO SCH ×2 (08:19→20:32)
[2017-01-19] MEDS: IPRATROPIUM BROMIDE 0.5 MG/2.5 ML NEB SOLUTION NEB SCH ×4 (09:00→21:00)
[2017-01-19] MEDS: ALBUTEROL SULFATE 2.5 MG/0.5 ML NEB SOLUTION NEB SCH ×4 (09:00→21:00)
[2017-01-19] MEDS: BUDESONIDE 0.5 MG/2 ML NEB SOLUTION NEB SCH ×2 (09:00→21:00)
[2017-01-19] MEDS: OXYGEN THERAPY IH SCH ×2 (09:28→21:00)
[2017-01-19 11:16] VITALS: BP 139/60
[2017-01-19 15:07] VITALS: BP 139/59
[2017-01-19 19:30] VITALS: BP 129/57
[2017-01-19] MEDS: ATORVASTATIN CALCIUM 40 MG TABLET PO SCH (20:31)
[2017-01-19] MEDS: MIRTAZAPINE 15 MG TABLET PO SCH (20:32)
[2017-01-19] MEDS: SENNA 187 MG TABLET PO SCH (20:33)
[2017-01-19] MEDS: ZOLPIDEM TARTRATE 5 MG TABLET PO SCH (20:57)
[2017-01-19 23:40] VITALS: BP 111/57
[2017-01-20] MEDS: HEPARIN SODIUM,PORCINE 5,000 UNITS/ML VIAL SQ SCH ×2 (00:04→08:36)
[2017-01-20 04:20] VITALS: BP 118/57
[2017-01-20 07:28] LABS: BASOPHILS % (AUTO) 0.4 % (0.0-2.0); EOSINOPHILS % (AUTO) 3.5 % (1.0-6.0); HEMATOCRIT 30.5 % (41-53); HEMOGLOBIN 9.7 g/dL (13.5-17.5); LYMPHOCYTES # (AUTO) 2.4 K/uL (1.0-4.8); LYMPHOCYTES % (AUTO) 38.1 % (22.0-44.0); MEAN CORPUSCULAR HEMOGLOBIN 26.7 pg (26.0-34.0); MEAN CORPUSCULAR HGB CONC 31.8 G/dL (31.0-37.0); MEAN CORPUSCULAR VOLUME 84 fL (80-100); MONOCYTES # (AUTO) 0.8 K/uL (0.1-1.0); MONOCYTES % (AUTO) 13.5 % (2.0-9.0); NEUTROPHILS # (AUTO) 2.8 K/uL (1.8-7.7); NEUTROPHILS % (AUTO) 44.5 % (40.0-70.0); PLATELET COUNT (AUTO) 242 K/uL (150-450); RED BLOOD CELL COUNT(AUTO) 3.62 MIL/uL (4.50-5.90); WHITE BLOOD COUNT (AUTO) 6.2 K/uL (4.5-11.0)
[2017-01-20 07:38] VITALS: BP 121/53
[2017-01-20 07:54] LABS: ALBUMIN 2.7 g/dL (3.4-5.0); BILIRUBIN,TOTAL 0.4 mg/dL (0.1-1.0); CALCIUM, TOTAL 8.5 mg/dL (8.8-10.5); CHOL/HDL RATIO 2.2 (4.2-7.3); CREATININE 1.42 mg/dL (0.60-1.30); MAGNESIUM 1.9 mg/dL (1.80-2.40); POTASSIUM 3.5 mmol/L (3.5-5.1); THYROID STIMULATING HORMONE 2.38 uIU/mL (0.36-3.74); TOTAL PROTEIN, SERUM 6.1 g/dL (6.4-8.2)
[2017-01-20] MEDS: LevETIRAcetam 500 MG TABLET PO SCH (08:36)
[2017-01-20] MEDS: FUROSEMIDE 20 MG TABLET PO SCH (08:36)
[2017-01-20] MEDS: DOCUSATE SODIUM 100 MG CAPSULE PO SCH (08:36)
[2017-01-20] MEDS: FAMOTIDINE 20 MG TABLET PO SCH (08:37)
[2017-01-20] MEDS: AMIODARONE HCL 200 MG TABLET PO SCH (08:37)
[2017-01-20] MEDS: TAMSULOSIN HCL 0.4 MG CAPSULE PO SCH (08:37)
[2017-01-20] MEDS: METOPROLOL TARTRATE 50 MG TABLET PO SCH (08:37)
[2017-01-20] MEDS: LANSOPRAZOLE 30 MG SOLUBLE TABLET PO SCH (08:38)
[2017-01-20] MEDS: BUDESONIDE 0.5 MG/2 ML NEB SOLUTION NEB SCH (09:00)
[2017-01-20] MEDS: IPRATROPIUM BROMIDE 0.5 MG/2.5 ML NEB SOLUTION NEB SCH (09:00)
[2017-01-20] MEDS: ALBUTEROL SULFATE 2.5 MG/0.5 ML NEB SOLUTION NEB SCH (09:00)
[2017-01-20] MEDS ORDERED: HALO5 PO (10:39)
[2017-01-20] MEDS ORDERED: MELA3 PO (10:41)
[2017-01-20 11:16] VITALS: BP 116/78
== END 2017-01-20 15:10 | DRG 580 ==
LOC: EMS 19:52 → 5S 23:13
PROVIDERS: ADMIT Internal Medicine; ATTEND Internal Medicine
PROC: 09QKXZZ Repair Nasal Mucosa and Soft Tissue, External Approach (ICD-10-PCS; principal; 2017-01-17)
DX: S01.81XA Laceration without foreign body of other part of head, initial encounter (principal); N17.9 Acute kidney failure, unspecified; S41.111A Laceration without foreign body of right upper arm, initial encounter; D64.9 Anemia, unspecified; W01.0XXA Fall on same level from slipping, tripping and stumbling without subsequent striking against object, initial encounter; E78.00 Pure hypercholesterolemia, unspecified; E78.5 Hyperlipidemia, unspecified; F03.90 Unspecified dementia, unspecified severity, without behavioral disturbance, psychotic disturbance, mood disturbance, and anxiety; G93.89 Other specified disorders of brain; K21.9 Gastro-esophageal reflux disease without esophagitis; M19.90 Unspecified osteoarthritis, unspecified site; N18.9 Chronic kidney disease, unspecified; I12.9 Hypertensive chronic kidney disease with stage 1 through stage 4 chronic kidney disease, or unspecified chronic kidney disease; S80.01XA Contusion of right knee, initial encounter; Z85.841 Personal history of malignant neoplasm of brain; Z86.73 Personal history of transient ischemic attack (TIA), and cerebral infarction without residual deficits; R55 Syncope and collapse; Y93.89 Activity, other specified; Y92.89 Other specified places as the place of occurrence of the external cause; Y99.8 Other external cause status; R00.1 Bradycardia, unspecified; T50.905A Adverse effect of unspecified drugs, medicaments and biological substances, initial encounter
CPT/HCPCS: 70450; 83735; 84443; 93005; 94640; 97163; 97530; 99285; J1630; J1644; J7050

== ENCOUNTER → 2017-03-06 | Outpatient (CLI) | payer MEDICARE, OTHER ==
[~2017-03-06] MED LIST changes: -ALBUTEROL; +ASPI81 PO; +AUD NEB; -COENZQ100 PO; -FLEET GLYCERIN RC; +GUAIF10 PO; +HALO5 PO; -IBUP-2070 PO; +KDUR10 PO; +MELA3TAB66 PO; -MOM30 PO; +MUPI1OIN4 NS; -OXYC500S2 PO; +PERCT PO; -ROBITUSSIN PO; +SENN-175 PO; -SENN-30 PO; +UBID100C24 PO; -ZOLP5 PO; +[UNRECOGNIZED DRUG - OTHER] PR
[2017-03-06 11:22] VITALS: BP 132/58
== END | disposition home or self-care (01) ==
LOC: SRCNTR 10:58
PROVIDERS: ATTEND Internal Medicine Critical Care Medicine
DX: I10 Essential (primary) hypertension (principal); Z86.73 Personal history of transient ischemic attack (TIA), and cerebral infarction without residual deficits; Z87.891 Personal history of nicotine dependence
CPT/HCPCS: G0463

== ENCOUNTER 2017-07-10 12:07 | Inpatient (IN) | payer MEDICARE, OTHER ==
[~2017-07-10] VITALS: Ht 180.3 cm; Wt 75.5 kg
[~2017-07-10 12:07] MED LIST changes: -ASPI81 PO; -KDUR10 PO; -MUPI1OIN4 NS
[2017-07-10] MEDS ORDERED: UBID100C24 PO (12:17)
[2017-07-10] MEDS ORDERED: ASPI81 PO (12:17)
[2017-07-10 12:40] LABS: GLUCOSE,POINT OF CARE 136 MG/DL (70-110)
[2017-07-10] MEDS ORDERED: PANTOPRAZOLE SODIUM 40 MG/VIAL IVP ONE (12:45)
[2017-07-10 13:12] LABS: BASOPHILS # (AUTO) 0.03 K/uL (0.00-0.20); BASOPHILS % (AUTO) 0.5 % (0.0-2.0); EOSINOPHILS # (AUTO) 0.18 K/uL (0.00-0.70); EOSINOPHILS % (AUTO) 2.51 % (1.0-6.0); HEMATOCRIT 27.9 % (41-53); HEMOGLOBIN 8.3 g/dL (13.5-17.5); LYMPHOCYTES # (AUTO) 1.4 K/uL (1.0-4.8); LYMPHOCYTES % (AUTO) 19.5 % (22.0-44.0); MEAN CORPUSCULAR HEMOGLOBIN 23.7 pg (26.0-34.0); MEAN CORPUSCULAR HGB CONC 29.7 G/dL (31.0-37.0); MEAN CORPUSCULAR VOLUME 80 fL (80-100); MONOCYTES # (AUTO) 0.6 K/uL (0.1-1.0); MONOCYTES % (AUTO) 8.3 % (2.0-9.0); NEUTROPHILS % (AUTO) 69.3 % (40.0-70.0); PLATELET COUNT (AUTO) 349 K/uL (150-450); RED BLOOD CELL COUNT(AUTO) 3.49 MIL/uL (4.50-5.90); RED CELL DISTRIBUTION WIDTH 23.2 % (11.5-14.5)
[2017-07-10 13:23] LABS: ANION GAP 4 mmol/L (8-16); CALCIUM, TOTAL 8.4 mg/dL (8.8-10.5); CARBON DIOXIDE 35 mmol/L (22-29); CHLORIDE 104 mmol/L (98-107); CREATININE 1.63 mg/dL (0.60-1.30); GLOMERULAR FILTR. RATE CALC 41 mL/min (>60); GLUCOSE,RANDOM 117 mg/dL (70-110); POTASSIUM 4.3 mmol/L (3.5-5.1); SODIUM SERUM 143 mmol/L (136-145); UREA NITROGEN, BLOOD 17 mg/dL (7-18)
[2017-07-10 13:24] LABS: INR 1.1 (0.9-1.1); PROTHROMBIN TIME 11.4 SEC (9.4-11.6)
[2017-07-10 13:28] LABS: ALANINE AMINOTRANSFERASE 14 U/L (12-78); ALBUMIN 3.2 g/dL (3.4-5.0); ALKALINE PHOSPHATASE 96 U/L (46-116); ASPARTATE AMINOTRANSFERASE 16 U/L (15-37); BILIRUBIN,TOTAL 0.4 mg/dL (0.1-1.0); CREATINE KINASE, TOTAL 62 U/L (39-308); TOTAL PROTEIN, SERUM 7.5 g/dL (6.4-8.2)
[2017-07-10 13:33] LABS: LACTIC ACID 1.4 mmol/L (0.4-2.0)
[2017-07-10 14:04] LABS: PLATELET MORPHOLOGY COMMENT GIANT PLTS PRESENT
[2017-07-10] MEDS ORDERED: ZOLPIDEM TARTRATE 5 MG TABLET PO PRN (20:30)
[2017-07-10] MEDS ORDERED: MORPHINE SULFATE 2 MG/ML SYRINGE IVP PRN (20:30)
[2017-07-10] MEDS ORDERED: ONDANSETRON HCL 4 MG/2 ML VIAL IVP PRN (20:30)
[2017-07-10] MEDS ORDERED: MAGNESIUM HYDROXIDE SUSPENSION 30 ML UDCUP PO PRN (20:30)
[2017-07-10] MEDS ORDERED: ALBUTEROL SULFATE 2.5 MG/0.5 ML NEB SOLUTION NEB PRN (20:30)
[2017-07-10] MEDS ORDERED: BISACODYL 10 MG RECTAL RECTAL SUPPOSITORY PR PRN (20:30)
[2017-07-10] MEDS ORDERED: ACETAMINOPHEN 325 MG TABLET PO PRN (20:30)
[2017-07-10 20:38] VITALS: BP 152/69
[2017-07-10] MEDS ORDERED: MISC MED-CONVERTED FROM AMBULATORY (Ipratropium/Albuterol Sulfate (Duoneb 2.5-0.5 Mg/3 Ml NEB SCH (21:00)
[2017-07-10] MEDS: ALBUTEROL SULFATE 2.5 MG/0.5 ML NEB SOLUTION NEB SCH (21:00)
[2017-07-10] MEDS: IPRATROPIUM BROMIDE 0.5 MG/2.5 ML NEB SOLUTION NEB SCH (21:00)
[2017-07-10] MEDS: PANTOPRAZOLE SODIUM 80 MG in SODIUM CHLORIDE 0.9% 100 ML IV SCH (22:26)
[2017-07-10 23:38] VITALS: BP 129/58
[2017-07-11] MEDS: CALCIUM CIT/VITAMIN D3 200 MG-250 UNITS TABLET PO SCH ×3 (00:01→15:56)
[2017-07-11] MEDS: SENNA 187 MG TABLET PO SCH ×2 (00:02→21:23)
[2017-07-11] MEDS: DOCUSATE SODIUM 100 MG CAPSULE PO SCH ×3 (00:02→21:23)
[2017-07-11] MEDS: METOPROLOL TARTRATE 50 MG TABLET PO SCH ×3 (00:10→21:23)
[2017-07-11] MEDS: LevETIRAcetam 500 MG TABLET PO SCH ×3 (00:11→21:23)
[2017-07-11] MEDS: HYDROCODONE/ACETAMINOPHEN 5-325 MG TABLET PO PRN (01:08)
[2017-07-11 04:58] VITALS: BP 113/62
[2017-07-11 05:06] LABS: APPEARANCE,URINE CLEAR (CLEAR); BILIRUBIN,URINE NEGATIVE (NEGATIVE); GLUCOSE, URINE (UA) NEGATIVE (NEGATIVE); KETONES,URINE NEGATIVE (NEGATIVE); LEUKOCYTE ESTERASE ,URINE NEGATIVE (NEGATIVE); NITRATE,URINE NEGATIVE (NEGATIVE); OCCULT BLOOD,URINE NEGATIVE (NEGATIVE); PROTEIN,URINE NEGATIVE (NEGATIVE)
[2017-07-11 05:12] LABS: BACTERIA,URINE None Seen /HPF (None Seen); RBC,URINE None Seen /HPF (0-2); WBC,URINE None Seen /HPF (0-5)
[2017-07-11 05:27] LABS: INFLUENZA TYPE A NEGATIVE FOR TYPE A (NEGATIVE); INFLUENZA TYPE B NEGATIVE FOR TYPE B (NEGATIVE)
[2017-07-11] MEDS: PANTOPRAZOLE SODIUM 80 MG in SODIUM CHLORIDE 0.9% 100 ML IV SCH ×2 (06:42→15:56)
[2017-07-11 08:12] VITALS: BP 115/60
[2017-07-11] MEDS: ASPIRIN 81 MG CHEWABLE TABLET PO SCH (08:16)
[2017-07-11] MEDS: UBIDECARENONE 100 MG CAPSULE PO SCH (08:17)
[2017-07-11] MEDS: FUROSEMIDE 20 MG TABLET PO SCH (08:20)
[2017-07-11] MEDS: POTASSIUM CHLORIDE 20 MEQ ER TABLET PO SCH (08:20)
[2017-07-11] MEDS: ALBUTEROL SULFATE 2.5 MG/0.5 ML NEB SOLUTION NEB SCH ×4 (09:00→20:34)
[2017-07-11] MEDS ORDERED: PANTOPRAZOLE SODIUM 40 MG DR TABLET PO SCH (09:00)
[2017-07-11] MEDS: IPRATROPIUM BROMIDE 0.5 MG/2.5 ML NEB SOLUTION NEB SCH ×4 (09:00→20:34)
[2017-07-11] MEDS: AMIODARONE HCL 200 MG TABLET PO SCH (10:21)
[2017-07-11 11:44] VITALS: BP 111/58
[2017-07-11 11:57] LABS: BASOPHILS # (AUTO) 0.06 K/uL (0.00-0.20); BASOPHILS % (AUTO) 0.8 % (0.0-2.0); EOSINOPHILS # (AUTO) 0.17 K/uL (0.00-0.70); EOSINOPHILS % (AUTO) 2.58 % (1.0-6.0); HEMATOCRIT 25.4 % (41-53); HEMOGLOBIN 7.6 g/dL (13.5-17.5); LYMPHOCYTES # (AUTO) 1.5 K/uL (1.0-4.8); LYMPHOCYTES % (AUTO) 22.7 % (22.0-44.0); MEAN CORPUSCULAR HEMOGLOBIN 23.9 pg (26.0-34.0); MEAN CORPUSCULAR HGB CONC 29.8 G/dL (31.0-37.0); MEAN CORPUSCULAR VOLUME 80 fL (80-100); MONOCYTES # (AUTO) 0.8 K/uL (0.1-1.0); MONOCYTES % (AUTO) 11.9 % (2.0-9.0); NEUTROPHILS # (AUTO) 4.2 K/uL (1.8-7.7); NEUTROPHILS % (AUTO) 62.1 % (40.0-70.0); PLATELET COUNT (AUTO) 305 K/uL (150-450); RED BLOOD CELL COUNT(AUTO) 3.17 MIL/uL (4.50-5.90); RED CELL DISTRIBUTION WIDTH 23.3 % (11.5-14.5)
[2017-07-11 11:58] LABS: PLATELET MORPHOLOGY COMMENT GIANT PLTS PRESENT
[2017-07-11 15:50] VITALS: BP 126/46
[2017-07-11] MEDS ORDERED: KDUR10 PO (19:44)
[2017-07-11 20:03] VITALS: BP 139/71
[2017-07-12 00:05] VITALS: BP 135/66
[2017-07-12] MEDS: CALCIUM CIT/VITAMIN D3 200 MG-250 UNITS TABLET PO SCH ×3 (00:17→16:41)
[2017-07-12] MEDS: HYDROCODONE/ACETAMINOPHEN 5-325 MG TABLET PO PRN (01:37)
[2017-07-12 07:38] VITALS: BP 124/54
[2017-07-12 07:45] LABS: % IRON SATURATION 4.5 % (30-44)
[2017-07-12] MEDS: IPRATROPIUM BROMIDE 0.5 MG/2.5 ML NEB SOLUTION NEB SCH ×3 (07:45→15:06)
[2017-07-12] MEDS: ALBUTEROL SULFATE 2.5 MG/0.5 ML NEB SOLUTION NEB SCH ×3 (07:45→15:07)
[2017-07-12] MEDS: ASPIRIN 81 MG CHEWABLE TABLET PO SCH (09:08)
[2017-07-12] MEDS: POTASSIUM CHLORIDE 20 MEQ ER TABLET PO SCH (09:08)
[2017-07-12] MEDS: FUROSEMIDE 20 MG TABLET PO SCH (09:09)
[2017-07-12] MEDS: UBIDECARENONE 100 MG CAPSULE PO SCH (09:09)
[2017-07-12] MEDS: AMIODARONE HCL 200 MG TABLET PO SCH (09:09)
[2017-07-12] MEDS: LevETIRAcetam 500 MG TABLET PO SCH (09:09)
[2017-07-12] MEDS: DOCUSATE SODIUM 100 MG CAPSULE PO SCH (09:09)
[2017-07-12] MEDS: METOPROLOL TARTRATE 50 MG TABLET PO SCH (09:09)
[2017-07-12 15:28] VITALS: BP 113/56
[2017-07-12] MEDS ORDERED: MUPI1OIN4 NS (15:47)
[2017-07-12 19:31] VITALS: BP 117/55
[2017-07-12] MEDS ORDERED: MUPIROCIN CALCIUM 2% 22 GM OINTMENT NASAL SCH (21:00)
== END 2017-07-12 19:35 | DRG 378 ==
LOC: EMS 12:10 → 5S 18:49
PROVIDERS: ADMIT Internal Medicine; ATTEND Internal Medicine
DX: K92.2 Gastrointestinal hemorrhage, unspecified (principal); I69.351 Hemiplegia and hemiparesis following cerebral infarction affecting right dominant side; I48.91 Unspecified atrial fibrillation; D64.9 Anemia, unspecified; R56.9 Unspecified convulsions; J44.9 Chronic obstructive pulmonary disease, unspecified; K59.00 Constipation, unspecified; E78.5 Hyperlipidemia, unspecified; I10 Essential (primary) hypertension; E78.00 Pure hypercholesterolemia, unspecified; I25.10 Atherosclerotic heart disease of native coronary artery without angina pectoris; K21.9 Gastro-esophageal reflux disease without esophagitis; N40.0 Benign prostatic hyperplasia without lower urinary tract symptoms; Z85.841 Personal history of malignant neoplasm of brain; Z79.82 Long term (current) use of aspirin; Z79.899 Other long term (current) drug therapy
CPT/HCPCS: 70450; 82728; 82962; 83540; 83550; 83605; 86850; 86900; 86901; 87081; 87804; 93005; 94640; 96374; 99291; C9113; J7050

== ENCOUNTER 2018-05-05 10:17 | Emergency (ER) | payer MEDICARE, OTHER ==
[~2018-05-05] VITALS: Ht 167.6 cm; Wt 77.3 kg
[~2018-05-05 10:17] MED LIST changes: +ASPI81 PO; -ATOR40TA28 PO; -BUDE0.5A5 NEB; -HALO5 PO; +IPRA3AMP24 NEB; -IPRA3AMP4 NEB; +KDUR10 PO; -KDUR20 PO; -MELA3TAB66 PO; +MUPI1OIN4 NS; -ONDA4 PO; -PERCT PO; -SENN-175 PO; +SENN-176 PO; -TAMS0.4C32 PO; -TRAM50TA4 PO; -[UNRECOGNIZED DRUG - OTHER] PR
[2018-05-05] MEDS ORDERED: FERR-89 PO (10:47)
[2018-05-05 12:16] LABS: BASOPHILS % (AUTO) 0.7 % (0.0-2.0); EOSINOPHILS % (AUTO) 5.4 % (1.0-6.0); HEMATOCRIT 32.6 % (41-53); LYMPHOCYTES # (AUTO) 1.5 K/uL (1.0-4.8); LYMPHOCYTES % (AUTO) 20.1 % (22.0-44.0); MEAN CORPUSCULAR HEMOGLOBIN 34.2 pg (26.0-34.0); MEAN CORPUSCULAR HGB CONC 33.6 G/dL (31.0-37.0); MEAN CORPUSCULAR VOLUME 102 fL (80-100); MONOCYTES % (AUTO) 12.8 % (2.0-9.0); NEUTROPHILS # (AUTO) 4.7 K/uL (1.8-7.7); PLATELET COUNT (AUTO) 239 K/uL (150-450); RED CELL DISTRIBUTION WIDTH 13.1 % (11.5-14.5)
[2018-05-05 12:21] LABS: CALCIUM, TOTAL 8.2 mg/dL (8.8-10.5); CREATININE 1.85 mg/dL (0.60-1.30); POTASSIUM 3.9 mmol/L (3.5-5.1)
[2018-05-05 12:30] LABS: ALBUMIN 2.8 g/dL (3.4-5.0); BILIRUBIN,TOTAL 0.3 mg/dL (0.1-1.0); TOTAL PROTEIN, SERUM 6.6 g/dL (6.4-8.2)
[2018-05-05 13:03] VITALS: BP 142/73
[2018-05-05 13:08] LABS: APPEARANCE,URINE CLEAR (CLEAR); BILIRUBIN,URINE NEGATIVE (NEGATIVE); GLUCOSE, URINE (UA) NEGATIVE (NEGATIVE); KETONES,URINE NEGATIVE (NEGATIVE); LEUKOCYTE ESTERASE ,URINE NEGATIVE (NEGATIVE); NITRATE,URINE NEGATIVE (NEGATIVE); OCCULT BLOOD,URINE NEGATIVE (NEGATIVE); PROTEIN,URINE NEGATIVE (NEGATIVE); UROBILINOGEN,URINE 0.2 mg/dL (<=1.0)
[2018-05-05 13:21] LABS: BACTERIA,URINE None Seen /HPF (None Seen); RBC,URINE None Seen /HPF (0-2); WBC,URINE None Seen /HPF (0-5)
== END 2018-05-05 15:00 | disposition home or self-care (01) ==
LOC: EMS 10:18
DX: S22.31XA Fracture of one rib, right side, initial encounter for closed fracture (principal); I12.9 Hypertensive chronic kidney disease with stage 1 through stage 4 chronic kidney disease, or unspecified chronic kidney disease; N18.9 Chronic kidney disease, unspecified; M54.5 Low back pain; E78.00 Pure hypercholesterolemia, unspecified; K21.9 Gastro-esophageal reflux disease without esophagitis; I25.10 Atherosclerotic heart disease of native coronary artery without angina pectoris; I48.91 Unspecified atrial fibrillation; Z88.6 Allergy status to analgesic agent; Z79.899 Other long term (current) drug therapy; W05.0XXA Fall from non-moving wheelchair, initial encounter; Y93.89 Activity, other specified; Y92.89 Other specified places as the place of occurrence of the external cause; Y99.8 Other external cause status
CPT/HCPCS: 36415; 70450; 71250; 72125; 74176; 80053; 81001; 85025; 99284; G0238; 72192; 74150

== ENCOUNTER 2018-05-30 16:49 | Emergency (ER) | payer MEDICARE, OTHER ==
[~2018-05-30] VITALS: Ht 175.3 cm; Wt 81.8 kg
[~2018-05-30 16:49] MED LIST changes: +FERR-89 PO; -MUPI1OIN4 NS
[2018-05-30] MEDS ORDERED: IBUPROFEN 600 MG TABLET PO ONE (19:15)
[2018-05-30 20:30] VITALS: BP 155/79
== END 2018-05-30 21:06 | disposition home or self-care (01) ==
LOC: EMS 16:50
DX: M53.3 Sacrococcygeal disorders, not elsewhere classified (principal); M54.5 Low back pain; I48.91 Unspecified atrial fibrillation; I25.10 Atherosclerotic heart disease of native coronary artery without angina pectoris; E78.00 Pure hypercholesterolemia, unspecified; I10 Essential (primary) hypertension; Z79.82 Long term (current) use of aspirin; Z79.899 Other long term (current) drug therapy; W01.0XXA Fall on same level from slipping, tripping and stumbling without subsequent striking against object, initial encounter; Y93.89 Activity, other specified; Y92.128 Other place in nursing home as the place of occurrence of the external cause; Y99.8 Other external cause status
CPT/HCPCS: 72170

== ENCOUNTER 2018-08-08 22:21 | Emergency (ER) | payer MEDICARE, OTHER ==
[~2018-08-08] VITALS: Ht 165.1 cm; Wt 59.1 kg
[2018-08-08] MEDS ORDERED: LACO100 PO (22:31)
[2018-08-08] MEDS ORDERED: IPRATROPIUM BROMIDE 0.5 MG/2.5 ML NEB SOLUTION NEB ONE (23:30)
[2018-08-08] MEDS ORDERED: ALBUTEROL SULFATE 2.5 MG/0.5 ML NEB SOLUTION NEB ONE (23:30)
[2018-08-08 23:33] LABS: BASOPHILS % (AUTO) 0.2 % (0.0-2.0); EOSINOPHILS % (AUTO) 1.3 % (1.0-6.0); HEMATOCRIT 35.7 % (41-53); HEMOGLOBIN 11.7 g/dL (13.5-17.5); LYMPHOCYTES # (AUTO) 0.5 K/uL (1.0-4.8); LYMPHOCYTES % (AUTO) 2.6 % (22.0-44.0); MEAN CORPUSCULAR HGB CONC 32.7 G/dL (31.0-37.0); MEAN CORPUSCULAR VOLUME 98 fL (80-100); MONOCYTES # (AUTO) 1.1 K/uL (0.1-1.0); MONOCYTES % (AUTO) 5.9 % (2.0-9.0); NEUTROPHILS # (AUTO) 17.4 K/uL (1.8-7.7); PLATELET COUNT (AUTO) 295 K/uL (150-450); RED BLOOD CELL COUNT(AUTO) 3.66 MIL/uL (4.50-5.90); RED CELL DISTRIBUTION WIDTH 13.6 % (11.5-14.5)
[2018-08-08 23:45] LABS: PROTHROMBIN TIME 10.8 SEC (9.4-11.6)
[2018-08-08 23:54] LABS: APPEARANCE,URINE CLOUDY (CLEAR); BILIRUBIN,URINE NEGATIVE (NEGATIVE); GLUCOSE, URINE (UA) NEGATIVE (NEGATIVE); KETONES,URINE TRACE mg/dL (NEGATIVE); LEUKOCYTE ESTERASE ,URINE SMALL (NEGATIVE); NITRATE,URINE NEGATIVE (NEGATIVE); OCCULT BLOOD,URINE NEGATIVE (NEGATIVE); PROTEIN,URINE NEGATIVE (NEGATIVE); UROBILINOGEN,URINE 0.2 mg/dL (<=1.0)
[2018-08-08 23:54] LABS: CALCIUM, TOTAL 8.4 mg/dL (8.8-10.5); CREATININE 1.74 mg/dL (0.60-1.30); POTASSIUM 4.3 mmol/L (3.5-5.1)
[2018-08-09] LABS: ALBUMIN 3.1 g/dL (3.4-5.0); BILIRUBIN,TOTAL 0.4 mg/dL (0.1-1.0); TOTAL PROTEIN, SERUM 7.1 g/dL (6.4-8.2)
[2018-08-09 00:03] LABS: LACTIC ACID 1.5 mmol/L (0.4-2.0)
[2018-08-09 00:13] LABS: BACTERIA,URINE Many /HPF (None Seen)
[2018-08-09 00:14] LABS: RBC,URINE None Seen /HPF (0-2); SQUAMOUS EPITHELIAL CELL,UR Rare /LPF (None Seen)
[2018-08-09] MEDS ORDERED: LEVOFLOXACIN 250 MG TABLET PO ONE (00:30)
[2018-08-09 02:16] LABS: INFLUENZA TYPE A NEGATIVE FOR TYPE A (NEGATIVE); INFLUENZA TYPE B NEGATIVE FOR TYPE B (NEGATIVE)
[2018-08-09 03:44] VITALS: BP 111/50
== END 2018-08-09 04:16 | disposition home or self-care (01) ==
LOC: EMS 22:21
DX: R06.02 Shortness of breath (principal); R05 Cough; I48.91 Unspecified atrial fibrillation; I25.10 Atherosclerotic heart disease of native coronary artery without angina pectoris; K21.9 Gastro-esophageal reflux disease without esophagitis; I10 Essential (primary) hypertension; E78.00 Pure hypercholesterolemia, unspecified; Z86.73 Personal history of transient ischemic attack (TIA), and cerebral infarction without residual deficits; Z79.82 Long term (current) use of aspirin; Z79.899 Other long term (current) drug therapy
CPT/HCPCS: 83605; 87040; 87086; 87205; 87804; 93005; 94640; 99291